=== PATIENT | female | born 2000 | race Two or more races ===

== ENCOUNTER 2024-10-19 18:51 | Inpatient (IN) | payer MEDICAID, SELFPAY ==
[2024-10-19] VITALS (16 sets, daily range): BP systolic 124–146; BP diastolic 68–84; PULSE 70–92; RESP 18–100; TEMP 36.8–37.1; O2SAT 94–98; BMI 32.9
[2024-10-19 19:41] LABS: ROM Kit Exp Date# 18/17/27; ROM Kit Lot # 57809118; ROM Swab Mixed By: DAVIN1; Rupture of Fetal Membranes Positive (Negative); Swb Mxed in Solvent 1 min? Yes
--- NOTE | 2024-10-19 19:57 | PD.LDHP ---
Documentation for date of: 10/19/24 OB Labor/Induct. HPI History of Present Illness History of present illness: H and P dictated in [employer] STAT line #9. [id number] Meds Home Medications and Allergies Home Medications ?Medication ?Instructions ?Recorded ?Confirmed ?Type prenat.vits,navi,qzr-owqs-gmktf 1 tab PO QDAY 11/11/21 10/19/24 History Allergies Allergy/AdvReac Type Severity Reaction Status Date / Time No Known Allergies Allergy Verified 10/19/24 19:06 OB Exam Physical Exam Vital signs: Temp Pulse Resp BP 98.2 F 77 18 124/80 10/19/24 19:10 10/19/24 19:05 10/19/24 19:04 10/19/24 19:05
[2024-10-19] MEDS: RINGERS LACTATED 1000 ML 1,000 ML 125 ML IV ×2 (20:58→23:28)
[2024-10-19 21:13] LABS: Basophils # (Auto) 0.1 Thou/mm3 (0.0-0.2); Basophils % (Auto) 1 % (0-2.5); Eosinophils # (Auto) 0.1 Thou/mm3 (0.0-0.5); Eosinophils % (Auto) 1 % (0-10); Hematocrit 37.7 % (36.0-46.0); Hemoglobin 13.3 g/dL (12.0-16.0); Immature Granulocytes % (Auto) 0 % (0-0); Immature Granulocytes Auto 0.03 Thou/mm3 (0.00-0.00); Lymphocytes # (Auto) 1.9 Thou/mm3 (1.0-4.8); Lymphocytes % (Auto) 26 % (10-50); Mean Corpuscular HGB Conc 35.3 g/dl (31.0-37.0); Mean Corpuscular Hemoglobin 29.3 pg (25.0-35.0); Mean Corpuscular Volume 83 fL (80-100); Monocytes # (Auto) 0.5 Thou/mm3 (0.0-0.8); Monocytes % (Auto) 6 % (0-12); Neutrophils # (Auto) 4.9 Thou/mm3 (1.8-7.7); Neutrophils % (Auto) 66 % (37-80); Nucleated Red Blood Cell % 0 /100 WBC (0); Platelet Count 240 Thou/mm3 (140-440); RDW Standard Deviation 40.5 fL (36.4-46.3); Red Blood Count 4.54 Miln/mm3 (4.00-5.20); White Blood Count 7.5 Thou/mm3 (3.6-11.0)
[2024-10-19] MEDS: MISOPROSTOL 50 mCg TABLET PO (21:33)
[2024-10-19 21:52] LABS: Syphilis Nonreactive (Nonreactive)
[2024-10-20] VITALS (103 sets, daily range): BP systolic 105–147; BP diastolic 59–101; PULSE 49–115; RESP 16–22; TEMP 36.3–37.1; O2SAT 91–100
[2024-10-20] MEDS: RINGERS LACTATED 1000 ML 1,000 ML 125 ML IV (03:27)
[2024-10-20] MEDS: CITRIC ACID/SODIUM CITR 15 ML UDC (BICITRA) 30 ML PO (04:46)
--- NOTE | 2024-10-20 06:00 | SUR.PHASEI ---
Pt. arrived to recovery via gurney, eyes closed, pt. is drowsy, responds to name, VSS, lung sounds clear, equal expansion dak[place], pt. receiving 4 liters 02 via NC, no c/o pain or nausea at this time, bakri balloon in place, small amount of bright red blood in collection bulb, carr catheter in place, bright yellow urine in collection bag. Disposable micah in place of jocy-pad, scant amount of bright red blood noted. Report received from Dr. Antony and Cyn LAND.
--- NOTE | 2024-10-20 06:24 | ESOP_ITS ---
Operative Note - PASSPORT SUPPORT ASSOCIATE Procedure Date of procedure: 10/20/24 Procedure Performed: Manual placental removal Uterine curettage Placement of intrauterine balloon Indication: Retained placenta hemorrhage Uterine atony Pre-Op diagnosis: As above Post-Op diagnosis: Retained placenta hemorrhage Uterine atony Anesthesia type: General Procedure description: Manual placental removal Uterine curettage Placement of intrauterine balloon Fluids: crystalloid Specimen: other Estimated blood loss (ml): 400 Findings: 20 weeks size mobile anteverted and boggy uterus. Cervix dilated 10 cm. Posterior placenta adherent to the uterus. Atonic uterus after placenta removed. Placenta removed complete and intact Complications: intraoperative hemorrhage Narrative: After proper informed consent was obtained. The patient was made aware of the risk complication alternative benefits of the proposed procedure. She was taken to the operating room where she underwent induction of general anesthesia. She was placed in dorsolithotomy position. A timeout was performed. She was prepped and draped you sterile fashion. She underwent exam under anesthesia. The placenta was manually removed complete and intact.. The uterine cavity was curetted to remove any remaining fragments of tissue and no additional tissue was obtained. Uterus was atonic despite uterotonic's and therefore a Bakri balloon was placed. The balloon was inflated with 400 cc of normal saline. The lower uterine cervix and vagina were packed with the Curlex roll. She remained hemodynamically stable throughout the procedure. There was no significant bleeding at the end of the procedure. Surgical staff Dr. Antony anesthesiologist Operation Date: 10/20/24 05:15 <No data on this case meets the specified criteria> Diagnosis Problem List Completed Was Problem List Reviewed/Reconciled?: Yes
--- NOTE | 2024-10-20 06:27 | SUR.PHASEI ---
Pt. awake eyes open, no c/o pain or nausea at this time, VSS, provided sips of water, pt. tolerated well. Assessed for vaginal bleeding, none at this time.
--- NOTE | 2024-10-20 06:30 | SUR.PHASEI ---
Called and gave report on pt. s/p surgery to Alicia LAND in OB.
[2024-10-20 06:32] LABS: Amphetamine/Metham Scrn,Ur OB Negative (Negative); Benzoylecgonine Screen, Ur OB Negative (Negative); Opiate Screen,Urine OB Negative (Negative); THC Screen,Urine OB Negative (Negative)
--- NOTE | 2024-10-20 06:40 | SUR.PHASEI ---
Pt. transferred to room 464 via [facility] waters, assessed pt. for vaginal bleeding, small amount of bright red blood noted on jocy-pad, bakri balloon in place, carr catheter in place, IVs flushed and patent, no c/o pain or nausea. Emerald LAND assumed care of pt.
--- NOTE | 2024-10-20 06:56 | OBDSUM_ITS ---
Data (Harris) Data : 3 Para: 2 Term: 2 : 0 : 0 Delivery Data (Harris) Labor Data ROM Date: 10/19/24 ROM Time: 13:00 Rupture Type: SROM Amniotic Fluid: Clear Delivery Data EDC: 10/31/24 EDC calculated by:: LMP/early US confirmation Labor Onset Stage 1 Date: 10/19/24 Labor Onset Stage 1 Time: 13:00 Labor Onset Stage 2 Date: 10/20/24 Labor Onset Stage 2 Time: 03:32 Delivery Date: 10/20/24 Delivery Time: 03:37 Gestational age (weeks): 38 Gestational age (days): 3 Placenta Delivery Date: 10/20/24 Placenta Delivery Time: 05:38 Delivered by: Stevenson Allison Delivery nurse: Lamar Oglesby Other staff at delivery: Nurse Other staff at delivery: Nurse Other staff at delivery: Nursery Nurse Other staff at delivery: Lamar Oglesby Other staff at delivery: Alicia Keita Other staff at delivery: emily bustamante Delivery Method Delivery: Vaginal Delivery Type: Spontaneous Presentation: Vertex Position: OA Anesthesia Type Primary Anesthesia: Epidural Placenta Placenta Delivery: Manual Placenta Cultures Obtained: No Placenta Sent for Examination: Yes Cord Sample: Cord Blood Obtained EBL Estimated blood loss (ml): 400 Umbilical Cord Placenta/Cord Complication: Retained Placenta Umbilical Vessels: 3 Nuchal Cord: None Body Cord: None Additional Procedures Manual placental removal Uterine curettage Placement of Bakri balloon Complications Complications: Uterine atony Retained placenta. [place] Data (Harris) Data Gender: Male Infant Weight Grams: 3110 1 Minute Total: 9 5 Minute Total: 9
[2024-10-20] MEDS: OXYTOCIN in NS 20 units 20 UNIT/1,000 ML BAG 125 UNIT IV (07:28)
--- NOTE | 2024-10-20 08:06 | ESHP_ITS ---
RE: NELA PEARSON : 2000 DATE OF ADMISSION: 10/19/2024 HISTORY OF PRESENT ILLNESS: This is a 23-year-old, 3, para 2-0-0-2 with a due date of 10/31/2024 with an intrauterine of 38 weeks and 2 days. She presents to the labor and delivery complaining of contractions and leaking. Denies bleeding. She reports normal movement. Her care was complicated by a noninvasive test or cell-free DNA test showing Klinefelter syndrome. She declined genetic amniocentesis to confirm and serial maternal medicine ultrasounds have shown normal anatomy. The plan at the time of delivery is for the taxicab starter to perform peripheral blood for chromosomal analysis. ALLERGIES: NO KNOWN DRUG ALLERGIES. MEDICATIONS: multivitamin one p.o. daily. SOCIAL HISTORY: She denies any alcohol, drug use, or smoking. She is [place]- speaking. PAST MEDICAL HISTORY: Denies. PAST SURGICAL HISTORY: Denies. OBSTETRIC HISTORY: 2021, 40-week normal vaginal delivery. No complications. 2022, 40-week normal vaginal delivery. No complications. REVIEW OF SYSTEMS: She denies any chest pain, palpitations, cough, fever, or shortness of breath or lower extremity pain. PHYSICAL EXAMINATION: VITAL SIGNS: Blood pressure is 124/80 mmHg, heart rate 88, respirations 18, temperature 98.2. HEENT: Oropharynx and sclerae are clear. LUNGS: Clear to auscultation bilaterally. HEART: Regular rate and rhythm. ABDOMEN: Gravid, term size consistent with estimated weight of 7.5 pounds. PELVIC: See RN notes. EXTREMITIES: Nontender. SKIN: No gross or lesion. NEUROLOGIC: No focal deficit. ASSESSMENT: Intrauterine at 38 weeks and 2 days, Premature Rupture of Membranes PLAN: Induction of labor, admit for delivery. The patient was made aware of the risks, complications alternatives, and benefits of operative vaginal delivery and delivery. Agrees with these modes of delivery if indicated. DT: 19:52:46 TT: 20:22:00 Ref: [id number] - TID: [id number] MTDD
[2024-10-20] MEDS: IBUPROFEN TAB 400 MG TABLET 800 MG PO (08:52)
[2024-10-20 11:01] LABS: Basophils % (Auto) 0 % (0-2.5); Eosinophils % (Auto) 0 % (0-10); Hematocrit 33.4 % (36.0-46.0); Hemoglobin 11.8 g/dL (12.0-16.0); Immature Granulocytes % (Auto) 0 % (0-0); Immature Granulocytes Auto 0.03 Thou/mm3 (0.00-0.00); Lymphocytes # (Auto) 1.2 Thou/mm3 (1.0-4.8); Lymphocytes % (Auto) 9 % (10-50); Mean Corpuscular HGB Conc 35.3 g/dl (31.0-37.0); Mean Corpuscular Hemoglobin 29.3 pg (25.0-35.0); Mean Corpuscular Volume 83 fL (80-100); Monocytes # (Auto) 0.4 Thou/mm3 (0.0-0.8); Monocytes % (Auto) 3 % (0-12); Neutrophils # (Auto) 11.5 Thou/mm3 (1.8-7.7); Neutrophils % (Auto) 87 % (37-80); Nucleated Red Blood Cell % 0 /100 WBC (0); Platelet Count 205 Thou/mm3 (140-440); RDW Standard Deviation 41.1 fL (36.4-46.3); Red Blood Count 4.03 Miln/mm3 (4.00-5.20); White Blood Count 13.2 Thou/mm3 (3.6-11.0)
[2024-10-20] MEDS: ceFAZolin/D5W 2 GM IV 2 GM/100 ML BAG IV ×2 (13:43→22:13)
[2024-10-20 19:57] LABS: Basophils % (Auto) 0 % (0-2.5); Eosinophils % (Auto) 0 % (0-10); Hematocrit 28.9 % (36.0-46.0); Hemoglobin 10.3 g/dL (12.0-16.0); Immature Granulocytes % (Auto) 0 % (0-0); Immature Granulocytes Auto 0.04 Thou/mm3 (0.00-0.00); Lymphocytes # (Auto) 1.8 Thou/mm3 (1.0-4.8); Lymphocytes % (Auto) 17 % (10-50); Mean Corpuscular HGB Conc 35.6 g/dl (31.0-37.0); Mean Corpuscular Hemoglobin 29.6 pg (25.0-35.0); Mean Corpuscular Volume 83 fL (80-100); Monocytes # (Auto) 0.5 Thou/mm3 (0.0-0.8); Monocytes % (Auto) 5 % (0-12); Neutrophils # (Auto) 8.5 Thou/mm3 (1.8-7.7); Neutrophils % (Auto) 78 % (37-80); Nucleated Red Blood Cell % 0 /100 WBC (0); Platelet Count 191 Thou/mm3 (140-440); RDW Standard Deviation 41.1 fL (36.4-46.3); Red Blood Count 3.48 Miln/mm3 (4.00-5.20); White Blood Count 10.9 Thou/mm3 (3.6-11.0)
[2024-10-21 00:40] VITALS: BP 111/72; PULSE 70; RESP 18; TEMP 36.7; O2SAT 97
[2024-10-21 04:44] VITALS: BP 107/69; PULSE 63; RESP 16; TEMP 36.3; O2SAT 97
[2024-10-21] MEDS: ceFAZolin/D5W 2 GM IV 2 GM/100 ML BAG IV (05:57)
--- NOTE | 2024-10-21 07:15 | ESPR_ITS ---
Subjective Subjective Interval history: Patient denies any excessive vaginal bleeding, dizziness or lightheadedness. White catheter was removed adequate urine output noted. Bakri balloon removed no vaginal bleeding noted. She is tolerating a regular diet. She is passing flatus. She denies any chest pain, palpitations, shortness of breath or lower extremity pain or swelling. Exam Vital Signs Temp Pulse Resp BP Pulse Ox O2 Del Method O2 Flow Rate 97.3 F 63 16 107/69 97 Room Air 2 10/21/24 04:44 10/21/24 04:44 10/21/24 04:44 10/21/24 04:44 10/21/24 04:44 10/21/24 04:44 10/20/24 08:30 Routine Respiratory Exam Comments: Clear to auscultation bilaterally Routine Cardiovascular Exam Comments: Regular rate and rhythm Routine Abdominal Exam Comments: Fundus is firm, nontender, no vaginal bleeding noted after balloon removed. Routine Extremities Exam Comments: Nontender Objective Labs 10/20/24 19:33 Labs: Laboratory Results - last 24 hr 10/20/24 10/20/24 10:40 19:33 WBC 13.2 H D 10.9 RBC 4.03 3.48 L Hgb 11.8 L 10.3 L Hct 33.4 L 28.9 L MCV 83 83 MCH 29.3 29.6 MCHC 35.3 35.6 RDW Std Deviation 41.1 41.1 Plt Count 205 D 191 Neut % (Auto) 87 H 78 Lymph % (Auto) 9 L 17 [place] % (Auto) 3 5 Eos % (Auto) 0 0 Baso % (Auto) 0 0 Neut # (Auto) 11.5 H 8.5 H Lymph # (Auto) 1.2 1.8 [place] # (Auto) 0.4 0.5 Eos # (Auto) 0.0 0.0 Baso # (Auto) 0.0 0.0 Immature Gran # (Auto) 0.03 H 0.04 H Absolute Nucleated RBC 0.00 0.00 Immature Gran % 0 0 Nucleated RBC % 0 0 Assessment & Plan Assessment Comment Assessment comment: Status post spontaneous vaginal delivery day #1 Postop day #1 status post manual placental removal, uterine curettage, and placement of 24-hour intrauterine balloon and removal. Plan Comment Plan Comment: Discontinue prophylactic antibiotics Monitor for fever and excessive vaginal bleeding Plan discharge home tomorrow if vital signs stable afebrile.
--- NOTE | 2024-10-21 07:35 | PC.NURSE ---
at bedside removed Mundo varma and this newspaper writer removed f/c pt tolerated well
[2024-10-21 08:49] VITALS: BP 113/71; PULSE 68; RESP 16; TEMP 36.7; O2SAT 98
--- NOTE | 2024-10-21 09:28 | PC.CC ---
Patient presented to the hospital to deliver her baby boy, Tyson. ASW received a referral for late to care. Analilia SANCHEZ made [id number] contact with patient. ASW introduced self, role, and reason for visit. Patient appeared alert and oriented to self, location, and situation.?Patient was pleasant and engaged in initial assessment. Patient confirmed information on demographics and reports to living with her significant other/father of the baby (FOB), Daron Lucas. Patient has two other children: 3 year-old son and 1 year-old son. Patient reports she was late to care at 17 weeks because she was unaware she was as she was irregular with her menstrual cycles. Patient stated she came to the hospital for unrelated medical concern and was notified she was . Upon finding out she was patient received regular care. Patient denied CWS involvment and domestic violence. Per patient, her support consist of the FOB and her mother, Zulema Harvey. She has all the supplies she needs for her new born and plans on breast and formula feeding her . ASW provided psychoeducation regarding baby blues and Post- Depression, as well as counseling groups at [facility], and [facility]. SW provided community resources: Warm Line and Crisis Line. ASW provided update to bedside EMERY Luna.
[2024-10-21 12:00] VITALS: BP 121/67; PULSE 61; RESP 18; TEMP 36.8; O2SAT 98
[2024-10-21 16:38] VITALS: BP 118/79; PULSE 67; RESP 18; TEMP 36.8; O2SAT 97
--- NOTE | 2024-10-21 17:00 | PD.ANESPROG ---
Documentation for date of: 10/21/24 POST ANESTHESIA NOTE: Patient had GETA for retained placenta early yesterday morning. I saw her earlier today afternoon in 464 with Stateless speaking female RN and she was alert and calm in bed, seated up, breast feeding her infant, NAD, denied any problems from anesthesia but she mentioned having some soreness over her jaw area and some discomfort in her throat when eating food. I looked inside her mouth with flash light and visible mucosa was unremarkable but I could not visualize her uvula or posterior pharygneal wall. I educated her with the RN at bedside to just watch her symptoms for now and to alert her doctor if her pain worsens, if she develops fevers, or notices blood in her mouth. She spoke clearly without hoarseness and opened her mouth without any distress. Ash Antony MD Anesthesia Progress Note Progress Note Most recent Vital Signs: Last Vital Signs Temp 98.3 F 10/21/24 16:38 Pulse 67 10/21/24 16:38 Resp 18 10/21/24 16:38 BP 118/79 10/21/24 16:38 Pulse Ox 97 10/21/24 16:38 O2 Del Method Room Air 10/21/24 16:38 O2 Flow Rate 2 10/20/24 08:30
[2024-10-21 20:20] VITALS: BP 116/76; PULSE 81; RESP 16; TEMP 36.7; O2SAT 98
[2024-10-22] MEDS: IBUPROFEN TAB 400 MG TABLET 800 MG PO (01:41)
--- NOTE | 2024-10-22 03:32 | PD.LDPPPRG ---
Subjective Subjective Interval history: Patient denies any problem or complaint.. She is voiding and ambulating and tolerating a regular diet. She denies any excessive vaginal bleeding or dizziness or lightheadedness. Exam Vital Signs Temp Pulse Resp BP Pulse Ox O2 Del Method O2 Flow Rate 98.0 F 81 16 116/76 98 Room Air 2 10/21/24 20:20 10/21/24 20:20 10/21/24 20:20 10/21/24 20:20 10/21/24 20:20 10/21/24 20:20 10/20/24 08:30 Routine Respiratory Exam Comments: Clear to auscultation bilaterally Routine Cardiovascular Exam Comments: Regular rate and rhythm Routine Abdominal Exam Comments: Fundus is firm nontender Routine Extremities Exam Comments: Nontender no edema Objective Labs 10/20/24 19:33 Assessment & Plan Assessment Comment Assessment comment: day #2 status post spontaneous vaginal delivery complicated by retained placenta Postop day #2 status post uterine curettage, manual placental removal, placement of Bakri balloon Status post removal of Bakri balloon The patient has had the balloon out for 24 hours and has had no significant vaginal bleeding There are no signs or symptoms of infection Plan Comment Plan Comment: Discharge home. Discharge instructions given follow-up in the office in 1 week. Time Spent With Patient Time:
[2024-10-22 04:45] VITALS: BP 100/64; PULSE 74; RESP 14; TEMP 36.5; O2SAT 98
--- NOTE | 2024-10-22 07:08 | PC.NURSE ---
Dr. Allison at bedside poc explained to pt, educated pt on reasons to return to ER and making follow up appt in 6 weeks with OB. Pt to be d/c home today.
[2024-10-22 07:30] VITALS: BP 109/71; PULSE 67; RESP 16; TEMP 36.6; O2SAT 99
== END 2024-10-22 09:30 | disposition home or self-care (01) | DRG 542 ==
LOC: S4SX 10-20 06:12 → S4NX 10-20 07:09
PROVIDERS: Admitting Provider Specialist; PCP Physician Assistant; Visit Provider Specialist
PROC: 10E0XZZ Delivery of Products of Conception, External Approach (ICD-10-PCS; CPT 58120; principal; 2024-10-20 05:00)
DX: O72.0 Third-stage hemorrhage (principal); Z37.0 Single live birth; Z3A.38 38 weeks gestation of pregnancy; N85.8 Other specified noninflammatory disorders of uterus
CPT/HCPCS: 36415; 59409; 80307; 84112; 85025; 86780; 86850; 86900; 86901; 86923; A4217; J0330; J0689; J1100; J2371; J2590; J2704; J2795; J3010; J3490; J7120; A9270

== ENCOUNTER 2025-02-18 14:02 | Emergency (ER) | payer MEDICAID, SELFPAY ==
--- NOTE | 2025-02-18 14:10 | XR_ITS ---
Examination: Abdomen sonogram, Limited Date and time of exam: February 18, 2025 1437 hrs. Indications: Onset epigastric pain today Technique: Real-time ayers scale transabdominal sonographic images of the upper abdomen obtained. Findings: Numerous gallstones Gallbladder wall 0.3 cm Common bile duct 0.3 cm Pancreatic head 2.0 cm Liver 13.9 cm fatty infiltration Normal hepatopedal portal venous flow Patent IVC Impression: Cholelithiasis, negative for cholecystitis
--- NOTE | 2025-02-18 14:12 | EDNOTE_ITS ---
ED Abdominal Pain RME/HPI General Chief Complaint: Abdominal Pain Stated complaint: ABD PAIN Time seen by provider: 02/18/25 14:10 Arrival date/time: 02/18/25 14:02 RME / HPI RME / HPI narrative: 24-year-old female patient came in for evaluation regarding right upper quadrant pain. Onset of symptoms about 25 minutes prior to ER visit as sudden onset of right upper quadrant pain described as sharp pain, severity moderate. No vomiting noted no diarrhea noted no fever noted denies any other complaints. Patient was diagnosed with gallstone in the past more than a year ago no follow- up with surgeon yet. Related Data Home Medications ?Medication ?Instructions ?Recorded ?Confirmed prenat.vits,navi,qus-swan-gflct 1 tab PO QDAY 11/11/21 10/19/24 Previous Rx's ?Medication ?Instructions ?Recorded ibuprofen 600 mg tablet 600 mg PO Q8H PRN pain #30 t abs 11/21/21 dicyclomine 20 mg tablet 20 mg PO TID PRN abdominal p ain 02/18/25 #30 tabs ibuprofen 600 mg tablet 600 mg PO Q8H PRN pain #30 t abs 02/18/25 Allergies Allergy/AdvReac Type Severity Reaction Status Date / Time No Known Allergies Allergy Verified 10/20/24 06:59 Review of Systems Review of Systems Narrative Review of Systems: Review of system reviewed and within normal limits except mentioned in HPI ED Exam Narrative Physical exam: VITAL SIGNS: Reviewed. GENERAL APPEARANCE: Alert and interactive, follows commands, no acute distress, HEAD AND FACE: Non-traumatic. ENT: PERRL, pink conjunctivitis, eyelid no trauma, Mucous membrane moist. NECK: Supple, nontender, no nuchal rigidity. CHEST: No tenderness, no crepitus, no paradoxical movement, no retractions. LUNGS: Clear, well ventilated, symmetric, no rales, no wheezing, no ronchi, no stridor, good breath sounds bilaterally. HEART: Regular rate, regular rhythm, no murmur, no gallops. ABDOMEN: Soft, positive bowel sounds, nondistended, no guarding, right upper quadrant tenderness, no rebound, no masses, RECTAL: Deferred. GENITAL: Deferred. NEUROLOGICAL: Gross motor function intact sensory function intact, Appropriate for age. MUSCULOSKELETAL: low back nontender, full range of motion. EXTREMITIES: Nontender, full range of motion. SKIN: Color pink, dry, no rash, no lacerations, no abrasions, no contusions. LYMPHATICS: Deferred. Course Quality Measures none Orders Category Date Time Status US gall bladder Stat Exams 02/18/25 14:10 Taken CBC [CBC] Stat Lab 02/18/25 14:32 Completed CMP [Comprehensive Metabolic Panel] Stat Lab 02/18/25 14:32 Completed HCG Qualitative,Urine Stat Lab 02/18/25 15:18 Completed Lipase Stat Lab 02/18/25 14:32 Completed UA, C/S IF [Urinalysis, C/S if Indicated] Stat Lab 02/18/25 15:18 Completed Ketorolac Inj [Toradol Inj] Med 02/18/25 14:15 Discontinued 30 mg IM X1 ONE Ketorolac Inj [Toradol Inj] Med 02/18/25 14:30 Discontinued 30 mg IVP X1 ONE Vital Signs Vital signs: Vital Signs Temperature 98.2 F 02/18/25 14:25 Pulse Rate 59 L 02/18/25 14:25 Respiratory Rate 15 02/18/25 14:25 Blood Pressure 93/59 L 02/18/25 14:25 Pulse Oximetry (%) 98 02/18/25 14:25 Oxygen Delivery Method Room Air 02/18/25 14:25 Abdominal Pain MDM MDM Narrative MDM Narrative:: 24-year-old female patient came in for evaluation regarding right upper quadrant pain. Onset of symptoms about 25 minutes prior to ER visit as sudden onset of right upper quadrant pain described as sharp pain, severity moderate. No vomiting noted no diarrhea noted no fever noted denies any other complaints. Patient was diagnosed with gallstone in the past more than a year ago no follow- up with surgeon yet. Laboratory workup came back unremarkable. LFTs slightly elevated total bili 2.0. Ultrasound gallbladder showed no common bile duct dilatation, multiple gallstones no sign of acute cholecystitis. Prior to discharge patient told me that the pain is totally gone. Patient is happy. I do suspect any acute cholecystitis at this time. Patient is tolerating p.o. fluids. Patient was advised to follow-up closely with PCP and prepare to general surgery for definitive management of the gallstone. Was also advised to return to emergency room for worsening of symptoms, nausea vomiting cannot take anything down. Patient and family agrees with the plan. Patient data External records reviewed:: None Clinical information provided by:: patient Social determinants that could affect healthcare access:: none Patient has the following chronic illnesses:: None How is presenting disease/condition affected by chronic disease/condition?: no chronic disease Evaluation data The following diagnostics were reviewed and interpreted by me:: lab results and radiology exam(s) Lab and/or radiology exams considered but not ordered:: None Interpretation Summary: See results MDM Medications / Prescriptions Medications or Prescriptions considered but not ordered:: None Medication administrations:: Medication Administration History Discontinued Medications Ketorolac Tromethamine (Ketorolac Inj 60 Mg/2 Ml Vial) 30 mg IM X1 ONE Stop: 02/18/25 14:16 Last Admin: 02/18/25 14:24 Dose: Not Given Documented By: KELSEY Non-Admin Reason: Cancelled by Provider Ketorolac Tromethamine (Ketorolac Inj 30 Mg/Ml Vial) 30 mg IVP X1 ONE Stop: 02/18/25 14:31 Last Admin: 02/18/25 14:34 Dose: 30 mg Documented By: KELSEY Comments: WASTED 30 OF 660MG 2ML VIAL PULLED EARLIER. PATIENT RECEVIED 30MG. ORDER IV WAS CHANGED Toradol IM Consultations Consultation(s) initiated? (list below): No Diagnosis Differential diagnosis abdominal pain: abdominal pain and diverticulitis Most likely diagnosis given after review of the tests above:: Biliary colic, gallstone Admission Indicated Admission indicated?: not indicated Admission Request Was there a request for admission?: No Disposition Plan Disposition Plan: Discharge Discharge Attestation Discharge Attestation: The patient and all family members were given an opportunity to ask questions and understood the discharge instructions. Discharge instructions specifically effects, indications for sooner follow up or return to the emergency department, and the expected course of current diagnosis. Patient condition: Stable Discharge Plan Plan Patient Disposition: HOME (Self Care) Discharge Disposition comment: Stable Prescriptions/Referrals Prescriptions/Med Rec: New dicyclomine 20 mg tablet 20 mg PO TID PRN (Reason: abdominal pain) Qty: 30 0RF ibuprofen 600 mg tablet 600 mg PO Q8H PRN (Reason: pain) Qty: 30 0RF No Action prenat.vits,navi,zsh-xaxb-vwkxq Tablet 1 tab PO QDAY ibuprofen 600 mg tablet 600 mg PO Q8H PRN (Reason: pain) Qty: 30 0RF Referrals: Donna Stark PA-C [Primary Care Provider] - In 1 week Problem List Clinical Impression: Biliary colic, Gallstone Patient/Caregiver Discharge Instructions Discharge Activity: activity as tolerated Education Materials: Treating Gallstones Additional Instructions: Thank you for the opportunity for serving you today. You are stable for discharged . You are advised to: Follow-up with your PCP in 1 to 2 days and as per referral to general surgeon Return to ED for worsening of symptoms Increase oral fluids Take medication as prescribed Please avoid eating fatty, greasy food. Print Language: French Stand Alone Forms: Zainab Award Info., Patient Portal Info Letter PA/BALL MACHINE OPERATOR Supervising Physician PA/ROBERTO Supervising Physician: MD Javid
[2025-02-18 14:25] VITALS: BP 93/59; PULSE 52; PULSE 59; RESP 15; RESP 19; TEMP 36.8; O2SAT 97; O2SAT 98; BMI 27.6
[2025-02-18 14:30] VITALS: BP 112/56; PULSE 64; RESP 19; TEMP 36.7; O2SAT 100
[2025-02-18] MEDS: KETOROLAC INJ 30 MG/ML VIAL IVP (14:34)
[2025-02-18 14:40] LABS: Basophils # (Auto) 0.1 Thou/mm3 (0.0-0.2); Basophils % (Auto) 1 % (0-2.5); Eosinophils # (Auto) 0.2 Thou/mm3 (0.0-0.5); Eosinophils % (Auto) 2 % (0-10); Hemoglobin 12.2 g/dL (12.0-16.0); Immature Granulocytes % (Auto) 0 % (0-0); Lymphocytes # (Auto) 1.9 Thou/mm3 (1.0-4.8); Lymphocytes % (Auto) 27 % (10-50); Mean Corpuscular HGB Conc 35.9 g/dl (31.0-37.0); Mean Corpuscular Hemoglobin 29.3 pg (25.0-35.0); Mean Corpuscular Volume 82 fL (80-100); Monocytes # (Auto) 0.4 Thou/mm3 (0.0-0.8); Monocytes % (Auto) 6 % (0-12); Neutrophils # (Auto) 4.6 Thou/mm3 (1.8-7.7); Neutrophils % (Auto) 64 % (37-80); Nucleated Red Blood Cell % 0 /100 WBC (0); Platelet Count 294 Thou/mm3 (140-440); RDW Standard Deviation 38.8 fL (36.4-46.3); Red Blood Count 4.17 Miln/mm3 (4.00-5.20); White Blood Count 7.2 Thou/mm3 (3.6-11.0)
[2025-02-18 15:00] LABS: Alanine Aminotransferase 36 U/L (10-49); Albumin, Serum 4.7 gm/dL (3.5-5.0); Albumin/Globulin Ratio 2.1 (1.2-2.2); Alkaline Phosphatase 119 U/L (46-116); Anion Gap 9 (7-16); Aspartate Amino Transferase 41 U/L (0-34); BUN/Creatinine Ratio 11 Ratio (12-20); Blood Urea Nitrogen 8 mg/dL (9-23); Calcium 9.1 mg/dL (8.3-10.6); Calcium (Corrected) 9.1 mg/dL (8.5-10.1); Carbon Dioxide 25.1 mMol/L (20.0-31.0); Chloride 105 mMol/L (98-107); Creatinine (Component) 0.7 mg/dL (0.6-1.3); Estimated Creatinine Clearance 137.1 mL/min (>60); Globulin 2.2 gm/dL (2.3-3.5); Glucose 97 mg/dL (74-106); Lipase 36 U/L (12-53); Osmolality,Calculated 275 (275-295); Potassium 3.9 mMol/L (3.4-5.1); Sodium 139 mMol/L (136-145); Total Protein 6.9 gm/dL (5.7-8.2); eGFR > 60 See Note
[2025-02-18 15:29] LABS: Collection Type, Urine Clean Catch
[2025-02-18 15:40] LABS: HCG Qualitative,Urine Negative
[2025-02-18 15:42] LABS: Bilirubin,Urine Negative (Negative); Blood,Urine Trace (Negative); Clarity,Urine Clear (Clear/Hazy); Color,Urine Yellow (Lt Yel-Yel); Culture Indicated,Urine Contaminated; Glucose, Urine Negative (Negative); Ketones,Urine Trace (Negative); Leukocyte Esterase,Urine Positive (Negative); Nitrite,Urine Negative (Negative); Protein,Urine Negative (Neg - Trace); RBC,Urine 4 /hpf (0-3); Specific Gravity,Urine 1.029 (1.001-1.035); Squamous Epithelial Cell,Urine 14 /hpf (0-5); WBC,Urine 14 /hpf (0-5)
[2025-02-18 15:54] VITALS: BP 106/61; PULSE 57; RESP 18; TEMP 36.8; O2SAT 100
== END 2025-02-18 16:43 | disposition home or self-care (01) ==
PROVIDERS: Nurse Practitioner Family; Emergency Provider Emergency Medicine; PCP Physician Assistant
DX: K80.70 Calculus of gallbladder and bile duct without cholecystitis without obstruction (principal)
CPT/HCPCS: 36415; 76705; 80053; 81001; 81025; 83690; 85025; 96374; 99284; J1885

== ENCOUNTER 2025-05-16 06:00 | Day surgery (SDC) | payer MEDICAID, SELFPAY ==
[2025-05-15 07:29] VITALS: BMI 30.9
--- NOTE | 2025-05-15 07:38 | EKG_ITS ---
[facility] Test Date: 2025-05-15 Pat Name: NELA PEARSON Department: Room: - Gender: Female Icu Specialist: RT STUDENT : 2000 Requested By: Ash Antony Order Number: [id number] Reading MD: Ash Antony Measurements Intervals Clark Rate: 66 P: 33 HI: 120 QRS: 59 QRSD: 80 T: 42 QT: 384 QTc: 403 Interpretive Statements SINUS RHYTHM LOW QRS VOLTAGE IN PRECORDIAL LEADS [QRS DEFLECTION < 1.0 mV IN CHEST LEADS] Compared to ECG 05/24/2024 15:07:16 Low QRS voltage now present Sinus arrhythmia no longer present /store/S0/[id number]
[2025-05-15 08:12] LABS: Basophils # (Auto) 0.1 Thou/mm3 (0.0-0.2); Basophils % (Auto) 1 % (0-2.5); Eosinophils # (Auto) 0.2 Thou/mm3 (0.0-0.5); Eosinophils % (Auto) 3 % (0-10); Hematocrit 36.8 % (36.0-46.0); Hemoglobin 12.6 g/dL (12.0-16.0); Immature Granulocytes Auto 0.02 Thou/mm3 (0.00-0.00); Lymphocytes # (Auto) 2.3 Thou/mm3 (1.0-4.8); Lymphocytes % (Auto) 40 % (10-50); Mean Corpuscular HGB Conc 34.2 g/dl (31.0-37.0); Mean Corpuscular Hemoglobin 28.8 pg (25.0-35.0); Mean Corpuscular Volume 84 fL (80-100); Monocytes # (Auto) 0.5 Thou/mm3 (0.0-0.8); Monocytes % (Auto) 8 % (0-12); Neutrophils # (Auto) 2.7 Thou/mm3 (1.8-7.7); Neutrophils % (Auto) 47 % (37-80); Nucleated Red Blood Cell # 0.00 Thou/mm3 (0.00-0.00); Nucleated Red Blood Cell % 0 /100 WBC (0); Platelet Count 362 Thou/mm3 (140-440); RDW Standard Deviation 38.0 fL (36.4-46.3); Red Blood Count 4.37 Miln/mm3 (4.00-5.20); White Blood Count 5.8 Thou/mm3 (3.6-11.0)
[2025-05-15 08:35] LABS: Alanine Aminotransferase 54 U/L (10-49); Albumin, Serum 4.7 gm/dL (3.5-5.0); Albumin/Globulin Ratio 2.0 (1.2-2.2); Alkaline Phosphatase 122 U/L (46-116); Anion Gap 8 (7-16); Aspartate Amino Transferase 41 U/L (0-34); BUN/Creatinine Ratio 14 Ratio (12-20); Bilirubin,Total 0.8 mg/dL (0.3-1.2); Blood Urea Nitrogen 10 mg/dL (9-23); Calcium 9.5 mg/dL (8.3-10.6); Calcium (Corrected) 9.5 mg/dL (8.5-10.1); Carbon Dioxide 28.0 mMol/L (20.0-31.0); Chloride 106 mMol/L (98-107); Creatinine (Component) 0.7 mg/dL (0.6-1.3); Estimated Creatinine Clearance 125.6 mL/min (>60); Globulin 2.4 gm/dL (2.3-3.5); Glucose 98 mg/dL (74-106); Osmolality,Calculated 282 (275-295); Potassium 4.0 mMol/L (3.4-5.1); Sodium 142 mMol/L (136-145); Total Protein 7.1 gm/dL (5.7-8.2); eGFR > 60 See Note
[2025-05-15 10:11] LABS: HCG,Qualitative Serum Negative
[2025-05-16] VITALS (8 sets, daily range): BP systolic 107–119; BP diastolic 65–75; PULSE 12–73; RESP 12–20; TEMP 36.2–36.6; O2SAT 95–100; BMI 30.5
[2025-05-16] MEDS: RINGERS LACTATED 1000 ML 1,000 ML 20 ML IV (06:50)
--- NOTE | 2025-05-16 07:23 | CHAP ---
Prayed with patient for her upcoming procedure.
--- NOTE | 2025-05-16 08:42 | PD.SUROPNT ---
Date of Procedure 05/16/25 Pre Op Diagnosis Symptomatic cholelithiasis Post Op Diagnosis Cholelithiasis with cholecystitis Procedure Laparoscopic cholecystectomy Findings Moderately distended gallbladder with gallstones and chronic cholecystitis Procedure Description Patient was brought into the operating room in supine position. After administration of general endotracheal anesthesia abdomen was prepped and draped in standard surgical manner. A Veress needle was inserted through the umbilicus and pneumoperitoneum was obtained up to 15 mmHg. The Veress needle was then removed, a 5 mm infraumbilical incision was made and the 5mm trocar was inserted. Laparoscopic camera was placed. Under direct visualization a laparoscopic camera a 10 mm trocar was placed in subxiphoid and two 5 mm trocars placed in right upper quadrant. The gallbladder was identified and was noted to be moderately distended with gallstones and chronic cholecystitis. It was retracted cephalad and laterally. Dissection started near the infundibulum of gallbladder where cystic duct and gallbladder junction clearly identified. The cystic duct was circumferentially dissected off the peritoneum and surrounding inflammatory tissue. The critical view of safety was clearly demonstrated. Cystic duct was then divided between 2 endoclips proximally and one distally. The cystic artery was similarly dissected and divided. The gallbladder was then from the liver bed using electrocautery. The gallbladder was then placed inside an Endo Catch and removed from the abdomen utilizing subxiphoid trocar site. The area was copiously and thoroughly washed and irrigated, all the fluid was suctioned and the suction fluid returned clear. Hemostasis achieved using electrocautery. Endoclips noted be in place and intact without any bleeding or any leakage. Hemostasis was adequate and satisfactory. The subxiphoid trocar sites fascial defect was closed with 0 Vicryl using Endo Closure device. Instruments and trocars removed, pneumoperitoneum was evacuated and the incisions closed with 4-0 Monocryl in subcuticular fashion. Instrument needle and sponge counts were all reported to be correct X2. Patient tolerated the procedure well, was extubated, breathing spontaneously and without difficulty and was transferred to postanesthesia care in stable condition. Anesthesia GETA and local Pathology / specimen Other (Gallbladder and contents) Estimated Blood Loss 10 Condition Stable Disposition PACU Surgeon Stefano Morgan MD Surgical Staff Operation Date: 05/16/25 07:30 Case Staff [employer]: Chauncey Fuentes RNcorrectional case records supervisor: Alma Harvey
--- NOTE | 2025-05-16 08:53 | SUR.PHASEI ---
0853: Pt. arrived with oral airway in place, vitals stable, breathing unlabored, no signs of distress, x4 dermabond sites to ABD CDI, no active bleed noted, report recieved from Jd ORDAZ and Cyn LAND.
[2025-05-16] MEDS: ACETAMINOPHEN IVPB 1,000 MG/100 ML VIAL 250 MG IV (09:21)
[2025-05-16] MEDS: fentaNYL CIT INJ 50 mCg/ML AMP 2ML IVP (09:41)
--- NOTE | 2025-05-16 10:00 | SUR.PHASEII ---
1000: Pt. AAOx4, vitals stable, breathing unlabored, no complaint of pain or nausea, dressing to ABD CDI, no active bleed noted, pt. tolerated sips of water well, pt. ambulated to wheelchair with steady gait and no assist, no complications. Gave discharge instructions to the pt. and her ride, both verbalized understanding and had no further questions. Pt. left with all personal belongings.
== END 2025-05-16 10:00 | disposition home or self-care (01) ==
PROVIDERS: PCP Physician Assistant; Referring Provider Surgery; Visit Provider Surgery
PROC: 0FT44ZZ Resection of Gallbladder, Percutaneous Endoscopic Approach (ICD-10-PCS; CPT 47562; principal; 2025-05-16 07:30)
DX: K80.10 Calculus of gallbladder with chronic cholecystitis without obstruction (principal); Z01.810 Encounter for preprocedural cardiovascular examination
CPT/HCPCS: 47562; 36415; 80053; 84703; 85025; 93005; A4217; A4649; J0131; J0694; J1100; J1885; J2250; J2405; J2704; J3010; J3490; J7120